=== PATIENT | male | born 1965 | race Caucasian/White ===

== ENCOUNTER 2024-07-17 02:06 | Inpatient (IN) | payer OTHER ==
[~2024-07-17] VITALS: Ht 195.6 cm; Wt 94.7 kg
[2024-07-17] VITALS (17 sets, daily range): BP systolic 97–160; BP diastolic 58–85
[~2024-07-17 02:06] MED LIST: AMIODARONE HCL200 MG PO; CARVEDILOL6.25 MG PO; CODLIVC PO; ELIQUIS5 M3 PO; ENTRESTO 24 MG1 EAC3 PO; EUTHYROX50 MC1 PO; METOPROLOL SUCC25 MG PO; MULVITMIND PO; Vitamin C100 M1 PO
[2024-07-17] MEDS ORDERED: NS 1,000 ML IV SCH ×2 (02:20→04:05)
[2024-07-17] MEDS ORDERED: Ondansetron HCl 2 MG / ML 2ML Vial IV ONE (02:20)
[2024-07-17 02:36] LABS: BASOPHILS ABSOLUTE AUTO 0.04 K/mm3 (0.00-0.23); BASOPHILS PERCENT AUTO 0 % (0-2); EOSINOPHILS ABSOLUTE AUTO 0.02 K/mm3 (0.00-0.68); EOSINOPHILS PERCENT AUTO 0 % (0-6); Hematocrit 47.2 % (37.0-53.0); Hemoglobin 16.4 g/dL (13.5-17.5); IMMATURE GRAN ABSOLUTE AUTO 0.08 K/mm3 (0.00-0.10); IMMATURE GRAN PERCENT AUTO 0 % (0-1); LYMPHOCYTES ABSOLUTE AUTO 1.26 K/mm3 (0.84-5.20); LYMPHOCYTES PERCENT AUTO 6 % (21-46); MONOCYTES ABSOLUTE AUTO 2.02 K/mm3 (0.16-1.47); MONOCYTES PERCENT AUTO 10 % (4-13); Mean Corpuscular HGB 29.8 pg (26.0-34.0); Mean Corpuscular HGB Conc 34.7 g/dL (31.5-36.5); Mean Corpuscular Volume 86 fL (80-100); Mean Platelet Volume 10.9 fL (9.1-12.4); NEUTROPHILS ABSOLUTE AUTO 16.97 K/mm3 (1.96-9.15); NEUTROPHILS PERCENT AUTO 83 % (41-73); Platelet Count 246 K/mm3 (150-400); RDW Standard Deviation 40.5 fL (35.1-46.3); Red Blood Cell Count 5.51 M/mm3 (4.30-5.90); White Blood Cell Count 20.39 K/mm3 (4.00-11.30)
[2024-07-17 02:53] LABS: Albumin, Blood 3.6 g/dL (3.4-5.0); Albumin/Globulin Ratio 0.8 (0.8-1.8); Bun/Creatinine Ratio 30.1 (12.0-20.0); Calcium, Blood 9.9 mg/dL (8.5-10.1); Creatinine, Blood 1.03 mg/dL (0.60-1.20); Globulin, Blood 4.4 g/dL (2.2-4.0); Potassium, Blood 4.4 mmol/L (3.5-5.5)
[2024-07-17 03:16] LABS: CORONAVIRUS COVID-19 AG Negative (NEGATIVE); INFLUENZA A AG Negative (NEGATIVE); INFLUENZA B AG Negative (NEGATIVE)
[2024-07-17] MEDS ORDERED: Prochlorperazine Edisylate 10 mg Vial IV ONE (03:40)
[2024-07-17] MEDS ORDERED: DiphenhydrAMINE HCl 50 MG/ML 1ML Vial IV ONE (03:40)
[2024-07-17] MEDS ORDERED: FentaNYL Citrate 50 MCG/ML 2 ML Injection IV ONE (04:20)
[2024-07-17] MEDS ORDERED: HYDROmorphone HCl/Pf 1MG SYR IV ONE (04:25)
[2024-07-17] MEDS ORDERED: LORazepam 2 MG/ML 1ML Injection IV STA (05:18)
[2024-07-17] MEDS ORDERED: Lidocaine 2% Jelly Uro-Jet TOP ONE (05:30)
[2024-07-17] MEDS ORDERED: LORazepam 2 MG/ML 1ML Injection IV PRN (06:00)
[2024-07-17] MEDS ORDERED: MetroNIDAZOLE 500MG/NS 100 ml 100 ML IV ONE (06:25)
[2024-07-17] MEDS ORDERED: CefTRIAXone Sodium 1,000 MG in NS 50 ML IV ONE (06:25)
[2024-07-17] MEDS ORDERED: Crestor40 MG PO (07:39)
[2024-07-17] MEDS ORDERED: HydrALAZINE HCl 20 MG / ML 1ML Vial IV PRN (07:40)
[2024-07-17] MEDS ORDERED: Ondansetron HCl 2 MG / ML 2ML Vial IV PRN (08:10)
[2024-07-17] MEDS ORDERED: NS 250 ML IV PRN (08:30)
[2024-07-17] MEDS ORDERED: Lactated Ringer's 1,000 ML IV SCH ×2 (08:55→22:20)
[2024-07-17] MEDS ORDERED: Bupivacaine 0.5% HCl 5 MG/ML 30MLVIAL ONE (08:59)
--- NOTE | 2024-07-17 09:10 | NUR ---
INTO SDS VIA BED. PT IS A&OX4 REPORTS 8/10 LLQ PAIN. PT IS PALE AND GRASPING HIS LLQ AREA.PT HAS ONGOING HICCUPS. HISTORY AND ALLERGIES REVIEWED. NPO STATUS CONFIRMED. HEART SOUND IRREGULAR-RATE 80-90'S. 12 LEAD EKG DONE-AFIB NOTED. RESULTS TO [place]VILLE ZAVALA LINESPERSON. NO NEW ORDERS. RESPIRATIONS SHALLOWS. PT REPORTS DIFFICULTY TAKING A DEEP BREATH DUE TO PAIN. LUNGS DIMINISHED IN THE BASES-SATS 93% ON RA. FLAGYL INFUSING VIA RAC #20 PIV-ANESTHESIA PROVIDER TO START ANOTHER IV IN OR IF NEEDED. SHAVE PREP AND CHLOHEXIDINE WIPE NOT DONE ORDERED BY DR. LYONS CASE IS EMERGENT. PT AT BEDSIDE-TEARFUL. YESENIA GREY RN ABLE TO CONSOLE HER. THOMAS PATTERSON PRAYED WITH PT AND SPOUSE-PER PT REQUEST.PT NOTED TO HAVE BELONGINGS BAG WITH HER.
[2024-07-17] MEDS ORDERED: Piperacillin/Tazobactam Sod 3.375 GM ONE (09:15)
--- NOTE | 2024-07-17 09:15 | NUR ---
#20 PIV TO RIGHT AC C/D/I.
[2024-07-17] MEDS ORDERED: Ondansetron HCl 2 MG / ML 2ML Vial ONE ×2 (09:18→12:29)
[2024-07-17] MEDS ORDERED: Dexamethasone Sodium Phosphate 4 MG/ML 5ML VIAL ONE (09:18)
[2024-07-17] MEDS ORDERED: FentaNYL Citrate 50 MCG/ML 2 ML Injection ONE ×2 (09:18→09:32)
[2024-07-17] MEDS ORDERED: Piperacillin/Tazobactam Sod 3.375 GM in NS 100 ML IV ONE (09:20)
[2024-07-17] MEDS ORDERED: Etomidate 2MG / ML 10ML Vial ONE (09:33)
[2024-07-17] MEDS ORDERED: Albumin (Human) 12.5gm/250ml 500 ML IV ONE (09:33)
--- NOTE | 2024-07-17 09:36 | NUR ---
PATIENT ARRIVED TO UNIT FROM ED VIA GURNEY. IV METRONIDAZOLE STARTED, TELE APPLIED, PATIENT CHANGED INTO GOWN AND DR GEORGE IMMEDIATELY TO BEDSIDE. PATIENT TO SURGERY, THEN TO SURGICAL FLOOR ROOM 208.
--- NOTE | 2024-07-17 09:50 | NUR ---
"Siritual Care | Family Support Pt. is currently getting exploratory surgery. and only son are in the Surg. waiting area when they welcome my visit. Pt. and family is known to this special forces senior sergeant from the community. Facilitated a medical review and update. Listen with pastoral empathy and a calming presence. Prayed with family for the the Pt. Family verbalized gratitude for the spiritual care visit and welcomed this special forces senior sergeant to continue supporting the family."
[2024-07-17] MEDS ORDERED: Labetalol HCL 5 MG/ML 4ML Injection (Single Dose) ONE (09:58)
[2024-07-17] MEDS ORDERED: Phenylephrine HCl 10mg/ml 1 ml Vial ONE (10:30)
[2024-07-17] MEDS ORDERED: Rocuronium Bromide 10 MG/ML 5ML Injection IV ONE (10:41)
--- NOTE | 2024-07-17 11:18 | NUR ---
REPORT RECIEVED FROM THOMAS BELLO. PT REMAINS IN PROCEDURE AT THIS TIME.
--- NOTE | 2024-07-17 11:52 | NUR ---
Spiritual Care Family Support. Spouse and son continue to wait for exploritory surgery in the waiting area. Spouse verbally requests that this manager web contact their pentecostal. Texts to Prayer line and elders are made.
[2024-07-17] MEDS ORDERED: Sugammadex Sodium 200 MG/2ML SDV (100 MG/ML) ONE (12:17)
[2024-07-17] MEDS ORDERED: Ketorolac Tromethamine 30mg Vial ONE (12:17)
[2024-07-17] MEDS ORDERED: Metoclopramide HCl 5MG / ML 2ML Vial ONE (12:57)
[2024-07-17] MEDS ORDERED: Morphine Sulfate 4 MG/1 ML Injection ONE (13:11)
[2024-07-17] MEDS ORDERED: HYDROmorphone HCl/Pf 1MG SYR ONE (13:20)
--- NOTE | 2024-07-17 13:54 | NUR ---
ARRIVAL TO UNIT PT ARRIVED TO UNIT ON BED FROM PACU. ON 4L NASAL CANULA, SATS GREATER THAN 94%, WILL TAKE DEEP BREATHS WHEN ASKED. PT REPORTS SIGNIFICANT PAIN AT THIS TIME, FALLS ASLEEP QUICKLY WHILE TALKING. ABLE TO ANSWER ALL QUESTIONS APPROPRIATLY AT THIS TIME. LAP SITES X3 CDI, MIDLINE PICCO WITH SMALL AMOUNT SANGUINOUS DRAINAGE, OUTLINE WITH MARKER AT THIS TIME. NGT CLAMPED ON ARRIVAL, AWAITING ORDERS FROM PHYSICIAN FOR NGT. FINE PATENT AND DRAINING. SPOUSE AT BEDSIDE. CALL LIGHT PROVIDED. PT REPORTS PAIN TO R EYE, STATES IT IS IRRITATED. COOL WASH CLOTH PROVIDED FOR SOME RELIEF.
[2024-07-17] MEDS ORDERED: FentaNYL Citrate 50 MCG/ML 2 ML Injection IV PRN (14:30)
--- NOTE | 2024-07-17 14:50 | NUR ---
placed ngt on lis. pt continues to sleep, occasional apnic periods while at rest. reports pain still high but falls asleep easily. taking shallow breaths. remains on 4l nasal canula. family at bedside.
[2024-07-17] MEDS ORDERED: Tobramycin/Dexameth Opth Susp 2.5 ML RIGHTEYE SCH (15:20)
[2024-07-17] MEDS ORDERED: Tobramycin/Dexameth Opth Susp 2.5 ML LEFTEYE SCH (18:00)
[2024-07-17] MEDS ORDERED: Piperacillin/Tazobactam Sod 3.375 GM in NS 100 ML IV SCH (18:30)
--- NOTE | 2024-07-18 04:11 | NUR ---
NOC SUMMARY- PT NG DRAINING GREEN BILE VIA LIS. PT PAIN HAS BEEN MINIMAL. FINE DRAINING TO GRAVITY. PT REPOSITIONED TOLERATED. PT HAS BEEN RESTING QUIETLY THROUGHOUT SHIFT. CALL LIGHT IN REACH.
[2024-07-18 04:12] VITALS: BP 116/62
[2024-07-18 05:46] LABS: Hematocrit 37.6 % (37.0-53.0); Hemoglobin 12.6 g/dL (13.5-17.5); Mean Corpuscular HGB 29.9 pg (26.0-34.0); Mean Corpuscular HGB Conc 33.5 g/dL (31.5-36.5); Mean Corpuscular Volume 89 fL (80-100); Mean Platelet Volume 11.5 fL (9.1-12.4); Platelet Count 161 K/mm3 (150-400); RDW Coefficient Variation 13.2 % (11.7-14.2); RDW Standard Deviation 43.1 fL (35.1-46.3); Red Blood Cell Count 4.22 M/mm3 (4.30-5.90); White Blood Cell Count 9.98 K/mm3 (4.00-11.30)
[2024-07-18 06:28] LABS: Bun/Creatinine Ratio 16.6 (12.0-20.0); Calcium, Blood 8.1 mg/dL (8.5-10.1); Creatinine, Blood 0.78 mg/dL (0.60-1.20); Potassium, Blood 4.4 mmol/L (3.5-5.5)
[2024-07-18 06:36] LABS: BAND PERCENT MAN 13 % (0-8); BASOPHILS PERCENT MAN 0 % (0-2); EOSINOPHILS PERCENT MAN 0 % (0-6); LYMPHOCYTES % ATYPICAL MANUAL 1 % (0-0); LYMPHOCYTES ABSOLUTE MAN 0.69 K/mm3 (0.84-5.20); LYMPHOCYTES PERCENT MAN 6 % (21-46); MONOCYTES ABSOLUTE MAN 0.49 K/mm3 (0.16-1.47); MONOCYTES PERCENT MAN 5 % (4-13); NEUTROPHILS ABSOLUTE MAN 8.78 K/mm3 (1.96-9.15); SEG NEUTROPHILS PERCENT MAN 75 % (41-73); TOTAL CELLS COUNTED 100
[2024-07-18 07:23] VITALS: BP 113/62
--- NOTE | 2024-07-18 08:41 | NUR ---
NOTIFIED DR. RAMEY OF [facility] SEEN IN CATHETER TUBING AND URINE. ORDERS TO GIVE 1L NS AT 150/HR THEN BACK TO 75/HR.
[2024-07-18] MEDS ORDERED: NS 1,000 ML IV SCH (08:45)
--- NOTE | 2024-07-18 09:34 | NUR ---
PT UP TO CHAIR. ABLE TO AMBULATE WELL TO HALLWAY AND BACK. REPORTS FEELING MUCH BETTER THAN HE EXPECTED AND WANTS TO CONTINUE AMBULATING MORE DURING THE DAY.
--- NOTE | 2024-07-18 11:15 | NUR ---
Pt. is awake and sitting in a recliner. Pt. is pleasant. Spouse is at bedside. Pt. and his family are known to this documentation engineer from the community. Since the pt. has an NG tube, he verbalizes that it is hard for him to talk without significant discomfort. Facilitate an update of the last 24 hours. Spouse verbalizes much of the updating. Pt. displays evidence of enagement and awareness and verbalizes a request to limit adventism visitors. With Pts. permission this documentation engineer contacted the adventism. Prayed with the Pt. Pt. and spouse verbalized gratitude for the spiritual care visit.
[2024-07-18 15:19] VITALS: BP 138/63
--- NOTE | 2024-07-18 16:31 | NUR ---
SHIFT SUMMARY POD 1 OPEN EX LAP PT HAS BEEN UP AND AMBULATING DURING SHIFT. SLIGHT INCREASE IN SORENESS BUT MANAGED PER EMAR. CONTINUES TO HAVE BROWN/GREEN OUTPUT THROUGH NGT. LIQUID CLEARER IN APPEARANCE TOWARDS END OF SHIFT. PICCO DRESSING REMAINS COMPRESSED. DENIES NAUSEA DURING SHIFT. DENIES PASSING FLATUS AT THIS TIME. PT CALLS APPROPRIATLY. MOTIVATED TO IMPROVE.
--- NOTE | 2024-07-18 18:25 | NUR ---
Spiritual Care Follow up. Meaningful matters of marycarmen and beleif are considered at length. Pt. displayed evidence of hope and encouragement. Prayed with Pt. Pt. verbalized gratitude for the spiritual care visits.
[2024-07-18 19:18] VITALS: BP 143/69
--- NOTE | 2024-07-19 04:57 | NUR ---
SHIFT SUMMARY NO ACUTE CHANGES TO REPORT OVERNIGHT. PT HAS RESTED T/O THE NIGHT. SURGICAL SITE WNL, INDIRA COMPRESSED. PT REPORTS THAT HE HAS BEEN PASSING GAS. PAIN MANAGED PER EMAR. PT HAS BEEN UP AND AMBULATING. NG TO TO [facility] WITH DARK GREEN DISCHARGE. PLAN OF CARE REMAINS UNCHANGED. BED IN LOWEST POSITION, CALL LIGHT WITHIN REACH.
[2024-07-19 05:51] LABS: BASOPHILS ABSOLUTE AUTO 0.02 K/mm3 (0.00-0.23); BASOPHILS PERCENT AUTO 0 % (0-2); EOSINOPHILS ABSOLUTE AUTO 0.21 K/mm3 (0.00-0.68); EOSINOPHILS PERCENT AUTO 2 % (0-6); Hematocrit 35.9 % (37.0-53.0); Hemoglobin 11.7 g/dL (13.5-17.5); IMMATURE GRAN ABSOLUTE AUTO 0.03 K/mm3 (0.00-0.10); IMMATURE GRAN PERCENT AUTO 0 % (0-1); LYMPHOCYTES ABSOLUTE AUTO 0.79 K/mm3 (0.84-5.20); LYMPHOCYTES PERCENT AUTO 9 % (21-46); MONOCYTES ABSOLUTE AUTO 0.77 K/mm3 (0.16-1.47); MONOCYTES PERCENT AUTO 9 % (4-13); Mean Corpuscular HGB 29.3 pg (26.0-34.0); Mean Corpuscular HGB Conc 32.6 g/dL (31.5-36.5); Mean Corpuscular Volume 90 fL (80-100); Mean Platelet Volume 11.1 fL (9.1-12.4); NEUTROPHILS ABSOLUTE AUTO 6.94 K/mm3 (1.96-9.15); NEUTROPHILS PERCENT AUTO 79 % (41-73); Platelet Count 154 K/mm3 (150-400); RDW Standard Deviation 43.2 fL (35.1-46.3); White Blood Cell Count 8.76 K/mm3 (4.00-11.30)
[2024-07-19 05:53] VITALS: BP 143/73
[2024-07-19] MEDS ORDERED: Levothyroxine Sodium 100 MCG Vial IV SCH (06:00)
[2024-07-19 06:31] LABS: Albumin, Blood 2.5 g/dL (3.4-5.0); Albumin/Globulin Ratio 0.7 (0.8-1.8); Bilirubin, Total 0.7 mg/dL (0.1-1.0); Bun/Creatinine Ratio 26.6 (12.0-20.0); Calcium, Blood 8.7 mg/dL (8.5-10.1); Creatinine, Blood 0.9 mg/dL (0.60-1.20); Globulin, Blood 3.4 g/dL (2.2-4.0); Potassium, Blood 3.9 mmol/L (3.5-5.5); Total Protein, Blood 5.9 g/dL (6.4-8.2)
[2024-07-19 07:05] VITALS: BP 145/72
[2024-07-19] MEDS ORDERED: Enoxaparin 40 MG/0.4 ML SYR SC SCH (09:00)
--- NOTE | 2024-07-19 14:16 | NUR ---
TELE CALLED TO NOTIFY THIS RN THAT THE PATIENT HAS BRADIED DOWN TO THE 40S 3TIMES. DR. COX NOTIFIED, PT REMAINS ASYMPTOMATIC WITH STABLE BP.
[2024-07-19 14:21] VITALS: BP 125/58
[2024-07-19 17:53] LABS: Magnesium, Blood 2.4 mg/dL (1.6-2.4)
[2024-07-19 17:55] LABS: Potassium, Blood 3.8 mmol/L (3.5-5.5); Thyroid Stimulating Hormone 0.709 uIU/mL (0.360-4.800)
--- NOTE | 2024-07-19 18:18 | NUR ---
SHIFT NOTE: PT A/OX4. HE IS ON TELE AND HAS HAD HR RANGING FROM 44-120S. PT REMAINS ASYMPTOMATIC BUT REPORTS HE CAN FEEL HIS HR GOING UP AND DOWN. HE IS ON RA WITH EVEN UNLABORED RESPIRATIONS. HE HAS AMBULATED IN THE HALLS WITH STAFF MULTIPLE TIMES T/O SHIFT. HE HAS VOIDED AND PASSED GAS. NG TUBE SET TO INT SUCTION. HIS PIV INFILTRATED WHILE RUNNING ZOSYN. PER PHARMACY'S RECCOMENDATION PT HAS COLD COMPRESS ON FOR 15 MINUTES. AT BEDSIDE T/O SHIFT. CARE CONTINUES
[2024-07-19 19:33] VITALS: BP 164/96
[2024-07-19] MEDS ORDERED: Melatonin 5 MG Tablet PO PRN (19:45)
[2024-07-19 19:53] VITALS: BP 154/84
--- NOTE | 2024-07-20 04:29 | NUR ---
SHIFT SUMMARY NO ACUTE CHANGES TO REPORT OVERNIGHT. PT HAS BEEN UP AND AMBULATING IN THE MORALES THIS SHIFT. HE DENIES PAIN. PT REPORTS PASSING GAS. BOWEL TONES HYPOACTIVE. NG TO TO LIS WITH GREEN DISCHARGE, OUTPUT HAS DECREASED. NO ACUTE CHANGES ON TELE OVERNIGHT. VITALS STABLE. BED IN LOWEST POSITION, CALL LIGHT WITHIN REACH.
[2024-07-20 05:02] VITALS: BP 147/65
[2024-07-20 07:39] VITALS: BP 145/86
--- NOTE | 2024-07-20 11:22 | NUR ---
NG TUBE REMOVED AT 0950. PT TOLERATED WELL.
[2024-07-20 14:55] VITALS: BP 152/74
[2024-07-20 19:22] VITALS: BP 143/76
--- NOTE | 2024-07-20 20:06 | NUR ---
SHIFT SUMMARY NG TUBE OUT TODAY, PT TOLERATING CLEAR LIQUID DIET. PAIN MANAGED. PT HAS BEEN AMBULATING IN THE HALWAYS. BEDSIDE REPORT GIVEN TO MEL GUZMAN.
[2024-07-21 05:51] VITALS: BP 147/79
[2024-07-21 05:57] LABS: BASOPHILS ABSOLUTE AUTO 0.05 K/mm3 (0.00-0.23); BASOPHILS PERCENT AUTO 1 % (0-2); EOSINOPHILS ABSOLUTE AUTO 0.61 K/mm3 (0.00-0.68); EOSINOPHILS PERCENT AUTO 7 % (0-6); Hematocrit 36.4 % (37.0-53.0); Hemoglobin 12.2 g/dL (13.5-17.5); IMMATURE GRAN ABSOLUTE AUTO 0.02 K/mm3 (0.00-0.10); IMMATURE GRAN PERCENT AUTO 0 % (0-1); LYMPHOCYTES ABSOLUTE AUTO 1.08 K/mm3 (0.84-5.20); LYMPHOCYTES PERCENT AUTO 13 % (21-46); MONOCYTES ABSOLUTE AUTO 0.77 K/mm3 (0.16-1.47); MONOCYTES PERCENT AUTO 9 % (4-13); Mean Corpuscular HGB 29.8 pg (26.0-34.0); Mean Corpuscular HGB Conc 33.5 g/dL (31.5-36.5); Mean Corpuscular Volume 89 fL (80-100); Mean Platelet Volume 10.4 fL (9.1-12.4); NEUTROPHILS ABSOLUTE AUTO 5.78 K/mm3 (1.96-9.15); NEUTROPHILS PERCENT AUTO 70 % (41-73); Platelet Count 183 K/mm3 (150-400); RDW Coefficient Variation 12.6 % (11.7-14.2); RDW Standard Deviation 41.7 fL (35.1-46.3); Red Blood Cell Count 4.09 M/mm3 (4.30-5.90); White Blood Cell Count 8.31 K/mm3 (4.00-11.30)
[2024-07-21] MEDS ORDERED: Levothyroxine Sodium 0.05 MG Tab PO SCH (06:00)
[2024-07-21 06:39] LABS: Bun/Creatinine Ratio 22.7 (12.0-20.0); Calcium, Blood 8.5 mg/dL (8.5-10.1); Creatinine, Blood 0.88 mg/dL (0.60-1.20)
--- NOTE | 2024-07-21 06:45 | NUR ---
PT TOLERATING FULL LIQS TONIGHT IN SMALL AMNTS AND PASSING FLATUS.DENIES NAUSEA.
[2024-07-21 07:07] VITALS: BP 142/80
--- NOTE | 2024-07-21 10:03 | NUR ---
MORNING NOTE THIS RN ASSUMED CARE AT APPROX 0715. PATIENT ALERT AND ORIENTED X4. INDEPENDENT IN ROOM - COMMUNICATES NEEDS EFFECTIVELY. VSS. TELEMETRY SHOWING SINUS 70s PER DEANDRA INFRASTRUCTURE TECHNICIAN. DENIES CHEST PAIN, PRESSURE. TOLERATING ROOM AIR, SATs >90%. RR EVEN, UNLABORED. TOLERATING FULL LIQUID DIET. MIDLINE WITH INDIRA DRESSING - WITH X2 SMALL DRIED BLOOD SPOTS. INDIRA TO SUCTION. X3 LAP SITES WITH WOUND GLUE C/D/I. REPORTS FLATULENCE. X1 SMALL BM THIS MORNING - STOOL NOT VISUALIZED BY THIS RN. AMBULATING IN HALLWAY WITH . CALL LIGHT IN REACH.
[2024-07-21] MEDS ORDERED: VISBIOME 112.51 EACH PO (10:55)
[2024-07-21] MEDS ORDERED: AMOCLA875 PO (11:21)
[2024-07-21] MEDS ORDERED: HYDR1TAB94 PO (11:23)
--- NOTE | 2024-07-21 12:03 | NUR ---
DISCHARGE NOTE NO ACUTE CHANGES SINCE MORNING NOTE. DC HOME ORDERED - PATIENT AGREEABLE WITH DC. DIETARY AT BEDSIDE THIS MORNING TO PROVIDE EDUCATION REGARDING FULL LIQUID DIET AT HOME. IV REMOVED. DC EDUCATION PROVIDED TO PATIENT AND HIS - BOTH STATE UNDERSTANDING. PERSONAL BELONGINGS WITH PATIENT. PATIENT TRANSFERRED OFF UNIT VIA WHEELCHAIR AT APPROX 1200.
== END 2024-07-21 12:00 | disposition home or self-care (01) | DRG 329 ==
LOC: ER 02:06 → SURS 05:36 → ERHOLD 05:36 → MEDS 05:36 → SURS 08:22 → MEDS 08:27 → SURS 11:13
PROVIDERS: Internal Medicine; Physician Assistant; Surgery; ADMIT Internal Medicine
PROC: 0DN84ZZ Release Small Intestine, Percutaneous Endoscopic Approach (ICD-10-PCS; 2024-07-17)
PROC: 0DNU4ZZ Release Omentum, Percutaneous Endoscopic Approach (ICD-10-PCS; 2024-07-17)
PROC: 0DBU0ZZ Excision of Omentum, Open Approach (ICD-10-PCS; 2024-07-17)
PROC: 0WQF0ZZ Repair Abdominal Wall, Open Approach (ICD-10-PCS; 2024-07-17)
PROC: 0D9670Z Drainage of Stomach with Drainage Device, Via Natural or Artificial Opening (ICD-10-PCS; 2024-07-17)
PROC: 0DB80ZZ Excision of Small Intestine, Open Approach (ICD-10-PCS; principal; 2024-07-17 09:00)
DX: K56.50 Intestinal adhesions [bands], unspecified as to partial versus complete obstruction (principal); K43.7 Other and unspecified ventral hernia with gangrene; K55.021 Focal (segmental) acute infarction of small intestine; E87.1 Hypo-osmolality and hyponatremia; K57.10 Diverticulosis of small intestine without perforation or abscess without bleeding; E03.9 Hypothyroidism, unspecified; I48.91 Unspecified atrial fibrillation; Z53.31 Laparoscopic surgical procedure converted to open procedure; Z79.890 Hormone replacement therapy; Z79.01 Long term (current) use of anticoagulants
CPT/HCPCS: 36415; 74177; 80048; 80053; 83735; 84132; 84443; 85025; 87040; 87428-QW; 88307; 93005; 93010; 94762; 96361; 96374-59; 96375; 99285-25; A9270; J0696; J0780; J1100; J1171; J1200; J1650; J1885; J2060; J2270; J2371; J2405; J2543; J2765; J3010; J7030; J7050; J7120; P9045; Q9967